=== PATIENT | male | born 1985 | race Hispanic/Latino ===

== ENCOUNTER 2020-05-30 09:25 | Emergency (ER) | payer SELFPAY ==
[2020-05-30] MEDS ORDERED: KETOROLAC 30 MG/ML INJ ONE (22:10)
[2020-05-30] MEDS ORDERED: METHYLPREDNISOLONE 125 MG INJ ONE (22:10)
[2020-05-30 22:14] LABS: Urine Blood TRACE (NEG); Urine Glucose 2+ (NEG); Urine Protein NEGATIVE (NEG); Urine Specific Gravity 1.025 (1.005-1.030)
--- NOTE | 2020-05-30 22:43 | EDPHYS ---
Physician Documentation [facility] Name: Fer Mendoza Age: 35 yrs Sex: Male : 1985 Arrival Date: 05/30/2020 Time: 21:28 Bed 8 Private MD: ED Physician Dakota Singh HPI: 05/31 03:13 This 35 yrs old Male presents to ER via Ambulatory with complaints of Kidney tw4 Pain. 03:13 The patient presents with pain and deformity. The symptoms are located in the low back, tw4 left low back. Onset: The symptoms/episode began/occurred last week. The pain radiates to the left leg. Associated signs and symptoms: The patient has no apparent associated signs or symptoms. The problem was sustained from unknown cause. Severity of symptoms: At their worst the symptoms were moderate, in the emergency department the symptoms are unchanged. The patient has not experienced similar symptoms in the past. Historical: - Allergies: 05/30 21:53 No Known Allergies; - Home Meds: 21:53 None [Active]; - PMHx: 21:53 Hypertension; Diabetes - IDDM; - PSHx: 21:53 None; - Immunization history:: Adult Immunizations up to date. - Social history:: Smoking status: Patient uses vape, Patient/guardian denies using. ROS: 05/31 03:13 Constitutional: Negative for fever, chills, and weight loss, Eyes: Negative for injury, tw4 pain, redness, and discharge, Cardiovascular: Negative for chest pain, palpitations, and edema, Respiratory: Negative for shortness of breath, cough, wheezing, and pleuritic chest pain, Abdomen/GI: Negative for abdominal pain, nausea, vomiting, diarrhea, and constipation, MS/Extremity: Negative for injury and deformity, Skin: Negative for injury, rash, and discoloration, Neuro: Negative for headache, weakness, numbness, tingling, and seizure. Back: Positive for pain at rest, pain with movement, radiated pain. Exam: 03:13 Constitutional: This is a well developed, well nourished patient who is awake, alert, tw4 and in no acute distress. Head/Face: Normocephalic, atraumatic. Chest/axilla: Normal chest wall appearance and motion. Nontender with no deformity. No lesions are appreciated. Cardiovascular: Regular rate and rhythm with a normal S1 and S2. No gallops, murmurs, or rubs. Normal PMI, no JVD. No pulse deficits. Respiratory: Lungs have equal breath sounds bilaterally, clear to auscultation and percussion. No rales, rhonchi or wheezes noted. No increased work of breathing, no retractions or nasal flaring. Abdomen/GI: Soft, non-tender, with normal bowel sounds. No distension or tympany. No guarding or rebound. No evidence of tenderness throughout. MS/ Extremity: Pulses equal, no cyanosis. Neurovascular intact. Full, normal range of motion. Neuro: Awake and alert, GCS 15, oriented to person, place, time, and situation. Cranial nerves II-XII grossly intact. Motor strength 5/5 in all extremities. Sensory grossly intact. Cerebellar exam normal. Normal gait. 03:13 Back: pain, that is mild, ROM is decreased, with all movement, Straight leg raises: left lower extremity illicits pain, at 30 degrees. Vital Signs: 05/30 21:50 BP 160 / 115; Pulse 95; Resp 18; Temp 98.2; Pulse Ox 99% ; Weight 136.08 kg; Height 6 wh ft. 1 in. (185.42 cm); Pain 7/10; 22:51 BP 137 / 92; Pulse 86; Resp 18; Pulse Ox 97% on R/A; wh 21:50 Body Mass Index 39.58 (136.08 kg, 185.42 cm) MDM: 21:42 Patient medically screened. tw4 05/31 03:13 Data reviewed: vital signs, nurses notes. Data interpreted: Pulse oximetry: tw4 Interpretation: normal. Counseling: I had a detailed discussion with the patient and/or guardian regarding: the historical points, exam findings, and any diagnostic results supporting the discharge/admit diagnosis. Medical screen evaluation completed. EMTALA emergency medical condition absent. Special discussion: I discussed with the patient/guardian in detail that at this point there is no indication for admission to the hospital. It is understood, however, that if the symptoms persist or worsen the patient needs to return immediately for re-evaluation. 05/30 21:56 Order name: Urine Dipstick--Ancillary (enter results) mw2 05/30 21:43 Order name: Urine Dipstick-Ancillary (obtain specimen); Complete Time: 21:50 tw4 Administered Medications: 05/30 22:06 Drug: TORadol 60 mg Route: IM; Site: left gluteus; 22:52 Follow up: Response: No adverse reaction; Pain is decreased 22:06 Drug: SOLU-Medrol 125 mg Route: IM; Site: right gluteus; 22:52 Follow up: Response: No adverse reaction Disposition: 05/30/20 22:43 Discharged to Home. Impression: Sciatica, left side. - Condition is Stable. - Discharge Instructions: Sciatica, Radicular Pain. - Prescriptions for Tramadol 50 mg Oral Tablet - take 1 tablet by ORAL route every 8 hours as needed; 12 tablet. Cyclobenzaprine 5 mg Oral Tablet - take 1 tablet by ORAL route 3 times per day As needed; 15 tablet. - Medication Reconciliation Form, Thank You Letter, Antibiotic Education, Prescription Opioid Use form. - Follow up: Private Physician; When: Upon discharge from the Emergency Department; Reason: Recheck today's complaints, Continuance of care, Re-evaluation by your physician. - Problem is new. - Symptoms have improved. Signatures: Dispatcher [employer] EDMS Shailesh Camargo Dakota Singh MD MD tw4 Corrections: (The following items were deleted from the chart) 22:52 22:43 05/30/2020 22:43 Discharged to Home. Impression: Sciatica, left side. Condition wh is Stable. Forms are Medication Reconciliation Form, Thank You Letter, Antibiotic Education, Prescription Opioid Use. Follow up: Private Physician; When: Upon discharge from the Emergency Department; Reason: Recheck today's complaints, Continuance of care, Re-evaluation by your physician. Problem is new. Symptoms have improved. tw4
--- NOTE | 2020-05-30 22:43 | ER ---
Nurse's Notes [facility] Name: Fer Mendoza Age: 35 yrs Sex: Male : 1985 Arrival Date: 05/30/2020 Time: 21:28 Bed 8 Private MD: Diagnosis: Sciatica, left side Presentation: 05/30 21:50 Chief complaint: Patient states: left low back pain that goes to left upper leg that wh started 3 weeks ago. Coronavirus screen: Client denies travel out of the [place] in the last 14 days. At this time, the client does not indicate any symptoms associated with coronavirus-19. Ebola Screen: Patient negative for fever greater than or equal to 101.5 degrees Fahrenheit, and additional compatible Ebola Virus Disease symptoms Patient denies exposure to infectious person. Initial Sepsis Screen: Does the patient meet any 2 criteria? HR > 90 bpm. Does the patient have a suspected source of infection? No. Patient's initial sepsis screen is negative. Risk Assessment: Do you want to hurt yourself or someone else? Patient reports no desire to harm self or others. Onset of symptoms was May 30, 2020. 21:50 Method Of Arrival: Ambulatory 21:50 Acuity: CHARLES 4 Historical: - Allergies: 21:53 No Known Allergies; - Home Meds: 21:53 None [Active]; - PMHx: 21:53 Hypertension; Diabetes - IDDM; - PSHx: 21:53 None; - Immunization history:: Adult Immunizations up to date. - Social history:: Smoking status: Patient uses vape, Patient/guardian denies using. Screenin:53 Abuse screen: Denies threats or abuse. Denies injuries from another. Nutritional screening: No deficits noted. Tuberculosis screening: No symptoms or risk factors identified. Fall Risk None identified. Assessment: 21:53 General: Appears in no apparent distress. Behavior is calm, cooperative, appropriate for age. Pain: Complains of pain in left low back Pain radiates to left leg Pain currently is 7 out of 10 on a pain scale. Quality of pain is described as shooting, Pain began 3 weeks ago. Neuro: Level of Consciousness is awake, alert, obeys commands, Oriented to person, place, time, situation, Appropriate for age. Cardiovascular: Capillary refill < 3 seconds. Respiratory: Airway is patent Respiratory effort is even, unlabored, Respiratory pattern is regular, symmetrical. GI: Abdomen is flat, non-distended. : No signs and/or symptoms were reported regarding the genitourinary system. EENT: No signs and/or symptoms were reported regarding the EENT system. Derm: Skin is intact, is healthy with good turgor, Skin is pink, warm \T\ dry. Musculoskeletal: Circulation, motion, and sensation intact. 21:55 Reassessment: Per MD hold on lab works for now. 22:50 Reassessment: Patient appears in no apparent distress at this time. Patient and/or wh family updated on plan of care and expected duration. Pain level reassessed. Patient is alert, oriented x 3, equal unlabored respirations, skin warm/dry/pink. Patient states feeling better. Patient states symptoms have improved. Vital Signs: 21:50 BP 160 / 115; Pulse 95; Resp 18; Temp 98.2; Pulse Ox 99% ; Weight 136.08 kg; Height 6 wh ft. 1 in. (185.42 cm); Pain 7/10; 22:51 BP 137 / 92; Pulse 86; Resp 18; Pulse Ox 97% on R/A; wh 21:50 Body Mass Index 39.58 (136.08 kg, 185.42 cm) ED Course: 21:28 Patient arrived in ED. cl3 21:41 Danny Bourne, RN is Primary Nurse. jb4 21:42 Dakota Singh MD is Attending Physician. tw4 21:44 Shailesh Camargo is Primary Nurse. 21:52 Triage completed. 21:54 Arm band placed on right wrist. 21:54 Patient has correct armband on for positive identification. Bed in low position. Call light in reach. Side rails up X 1. Pulse ox on. NIBP on. 22:51 No provider procedures requiring assistance completed. Patient did not have IV access during this emergency room visit. Administered Medications: 22:06 Drug: TORadol 60 mg Route: IM; Site: left gluteus; 22:52 Follow up: Response: No adverse reaction; Pain is decreased 22:06 Drug: SOLU-Medrol 125 mg Route: IM; Site: right gluteus; 22:52 Follow up: Response: No adverse reaction Outcome: 22:43 Discharge ordered by . [email or web address] 22:51 Discharged to home ambulatory. 22:51 Condition: stable 22:51 Discharge instructions given to patient, Instructed on discharge instructions, follow up and referral plans. no drinking with medication, no driving heavy equipment, medication usage, POC Demonstrated understanding of instructions, follow-up care, medications, POC Prescriptions given X 2. 22:52 Patient left the ED. Signatures: Danny Bourne RN RN jb4 Shailesh Camargo Dakota Singh MD MD tw4 Tino Saunders cl3
== END 2020-05-30 22:52 | disposition home or self-care (01) ==
LOC: ER 21:25
DX: M54.32 Sciatica, left side (principal); I10 Essential (primary) hypertension; Z72.0 Tobacco use
CPT/HCPCS: 81003; 96372; 99283; J2930

== ENCOUNTER 2021-05-14 13:49 | Observation (INO) | payer OTHER, SELFPAY ==
[2021-05-14 14:23] LABS: Absolute Lymphocytes (CBC) 2.1 K/uL (0.7-4.9); Basophils % 0.7 % (0-1.3); Hematocrit 49.5 % (39.6-49.0); Lymphocytes % 28.9 % (15.3-44.8); MPV 10.9 fL (7.6-11.3); RBC Red Blood Cell Count 5.87 M/uL (4.33-5.43)
--- NOTE | 2021-05-14 14:36 | RAD REPORT ---
EXAM DESCRIPTION: Camila Single View05/14/2021 2:17 pm CLINICAL HISTORY: Chest pain COMPARISON: none FINDINGS: The lungs appear clear of acute infiltrate. The heart is normal size IMPRESSION: No acute abnormalities displayed
[2021-05-14 14:40] LABS: Protime INR 0.97
[2021-05-14 15:32] LABS: ALT/SGPT 49 U/L (12-78); AST/SGOT 31 U/L (15-37); Alkaline Phosphatase 161 U/L (45-117); BUN Blood Urea Nitrogen 15 mg/dL (7-18); Bicarbonate 22 mmol/L (21-32); Bilirubin Direct < 0.1 mg/dL (0-0.2); Bilirubin Total 0.4 mg/dL (0.2-1.0); Glucose Level 359 mg/dL (74-106); Magnesium 2.2 mg/dL (1.8-2.4); NT PRO-BNP < 5 pg/mL (<125); Potassium 4.5 mmol/L (3.5-5.1); Protein, Total 7.3 g/dL (6.4-8.2); Sodium Level 137 mmol/L (136-145); Troponin (Emerg Dept Use Only) < 0.02 ng/mL (0.0-0.045)
[2021-05-14] MEDS ORDERED: NA CHLORIDE 0.9% 1,000 ML ONE (16:06)
--- NOTE | 2021-05-14 16:24 | RAD REPORT ---
EXAM DESCRIPTION: CT - Chest For Pe Angio - 05/14/2021 4:08 pm CLINICAL HISTORY: Chest pain COMPARISON: None. TECHNIQUE: Dynamically enhanced axial 3 mm thick images of the chest were obtained during administra tion of <100> mL Isovue 370 IV contrast. Coronal and oblique reconstruction images were generated and reviewed. Exam utilizes a protocol for optimal evaluation of pulmonary arterial tree. Maximum intensity projections 3D imaging was utilized All CT scans are performed using dose optimization technique as appropriate and may include automated exposure control or mA/KV adjustment according to patient size. FINDINGS: A pulmonary embolus is not seen. A thoracic aortic aneurysm is not noted. A bovine aorta A pleural effusion is not seen. A pericardial effusion is not seen. A lung consolidation is not present. IMPRESSION: Negative for a pulmonary embolism.
--- NOTE | 2021-05-14 16:39 | ER ---
Nurse's Notes [facility] Name: Fer Mendoza Age: 36 yrs Sex: Male : 1985 Arrival Date: 05/14/2021 Time: 13:51 Bed 28 Private MD: Diagnosis: Chest pain, unspecified Presentation: 05/14 14:06 Chief complaint: Patient states: Left sided chest pressure since 0800, constant. jl7 Coronavirus screen: At this time, the client does not indicate any symptoms associated with coronavirus-19. Ebola Screen: No symptoms or risks identified at this time. Initial Sepsis Screen: Does the patient meet any 2 criteria? No. Patient's initial sepsis screen is negative. Does the patient have a suspected source of infection? No. Patient's initial sepsis screen is negative. Risk Assessment: Do you want to hurt yourself or someone else? Patient reports no desire to harm self or others. Onset of symptoms was May 14, 2021 at 08:00. Care prior to arrival: None. 14:06 Method Of Arrival: Ambulatory [facility] 14:06 Acuity: CHARLES 2 jl7 Triage Assessment: 14:08 General: Appears in no apparent distress. uncomfortable, Behavior is calm, cooperative, jl7 appropriate for age. Pain: Complains of pain in chest Pain currently is 6 out of 10 on a pain scale. at worst was 8 out of 10 on a pain scale. Cardiovascular: Patient's skin is warm and dry. Historical: - Allergies: 14:08 No Known Allergies; jl7 - Home Meds: 14:08 supposed to take DM and htn medications but does not [Active]; jl7 - PMHx: 14:08 Diabetes - IDDM; Hypertension; jl7 - PSHx: 14:08 None; jl7 - Immunization history:: Client reports receiving the 2nd dose of the Covid vaccine, [employer]. - Social history:: Smoking status: Reported history of juuling and/or vaping. Screenin:13 Abuse screen: Denies threats or abuse. Denies injuries from another. Nutritional lp1 screening: No deficits noted. Tuberculosis screening: No symptoms or risk factors identified. Fall Risk None identified. Assessment: 14:09 General: Appears in no apparent distress. Behavior is appropriate for age. Pain: lp1 Complains of pain in chest Pain radiates to left arm Pain currently is 5 out of 10 on a pain scale. Pain began gradually. Neuro: Level of Consciousness is awake, alert, obeys commands, Oriented to person, place, time, situation. Cardiovascular: Patient's skin is warm and dry. Rhythm is sinus rhythm. Respiratory: Respiratory effort is even, unlabored, Breath sounds are clear bilaterally. GI: No signs and/or symptoms were reported involving the gastrointestinal system. : No signs and/or symptoms were reported regarding the genitourinary system. EENT: No signs and/or symptoms were reported regarding the EENT system. Derm: Skin is pink, warm \T\ dry. Musculoskeletal: No deficits noted. 15:48 Reassessment: Patient appears in no apparent distress at this time. Patient is alert, lp1 oriented x 3, equal unlabored respirations, skin warm/dry/pink. Reassessment: Denies need for medication for chest pain discomfort. Pain: Complains of pain in chest Pain radiates to left arm Pain currently is 5 out of 10 on a pain scale. Is intermittent. 19:00 Reassessment: Patient appears in no apparent distress at this time. Patient is alert, lp1 oriented x 3, equal unlabored respirations, skin warm/dry/pink. aware of pending admission. Vital Signs: 14:06 BP 147 / 101; Pulse 108; Resp 17; Temp 98.2; Pulse Ox 97% on R/A; Weight 136.08 kg; jl7 Height 6 ft. 1 in. (185.42 cm); Pain 6/10; 14:59 BP 130 / 91; Pulse 103; Resp 22; Pulse Ox 97% on R/A; lp1 15:48 BP 131 / 92; Pulse 116; Resp 16; Pulse Ox 98% on R/A; Pain 5/10; lp1 17:00 BP 136 / 89; Pulse 102; Resp 23; Pulse Ox 100% on R/A; ld1 18:15 BP 129 / 92; Pulse 106; Resp 21; Pulse Ox 100% on R/A; ld1 14:06 Body Mass Index 39.58 (136.08 kg, 185.42 cm) jl7 ED Course: 13:51 Patient arrived in ED. am2 13:54 Nikolay Noriega PA is PHCP. [facility] 13:55 Kehinde Ruiz MD is Attending Physician. [facility] 14:00 Inserted saline lock: 20 gauge in right antecubital area, using aseptic technique. lp1 Blood collected. 14:08 Triage completed. jl7 14:08 Nina Mendenhall, RN is Primary Nurse. lp1 14:08 Arm band placed on right wrist. EKG completed in triage. Results shown to MD. jl7 14:13 Patient has correct armband on for positive identification. Bed in low position. lp1 library monitor on. Pulse ox on. NIBP on. 14:13 Patient maintains SpO2 saturation greater than 95% on room air. lp1 14:17 XRAY Chest (1 view) In Process Unspecified. EDMS 16:08 CT Chest For PE Angio In Process Unspecified. EDMS 16:38 Deon Casey MD is Hospitalizing Provider. [facility] 17:00 Report given to SCOTTY Haro. lp1 19:35 No provider procedures requiring assistance completed. lp1 19:35 Patient admitted, IV remains in place. lp1 Administered Medications: 15:47 Drug: NS 0.9% 1000 ml Route: IV; Rate: 1 bolus; Site: right antecubital; lp1 17:00 Follow up: IV Status: Completed infusion; IV Intake: 1000ml lp1 Intake: 17:00 IV: 1000ml; Total: 1000ml. 1 Outcome: 16:38 Decision to Hospitalize by Provider. [facility] 19:35 Condition: stable lp1 19:35 Instructed on the need for admit. 19:40 Admitted to Tele room 421, with chart, Report called to SCOTTY Yuen lp1 19:59 Patient left the ED. lp1 Signatures: Dispatcher [employer] EDNM Nikolay Noriega PA PA Nina Luke, RN RN lp1 Divya Zambrano RN RN jl7 Kezia Constantino am2 Estrellita Ferrer, RN RN ld1 Corrections: (The following items were deleted from the chart) 19:37 19:00 Reassessment: Patient appears in no apparent distress at this time. Patient is lp1 alert, oriented x 3, equal unlabored respirations, skin warm/dry/pink. lp1
--- NOTE | 2021-05-14 16:39 | EDPHYS ---
Physician Documentation [facility] Name: Fer Mendoza Age: 36 yrs Sex: Male : 1985 Arrival Date: 05/14/2021 Time: 13:51 Bed 28 Private MD: ED Physician Kehinde Ruiz HPI: 05/14 14:18 This 36 yrs old Male presents to ER via Ambulatory with complaints of Chest jmm Pain, High Blood Pressure. 14:18 The patient or guardian reports chest pain that is located primarily in the substernal jmm area. The pain does not radiate. Associated signs and symptoms: Pertinent negatives: abdominal pain, lightheadedness, nausea, near syncope, shortness of breath, vomiting. The chest pain is described as aching. Duration: The patient or guardian reports a single episode, that is still ongoing. Modifying factors: The symptoms are alleviated by nothing. the symptoms are aggravated by nothing. The patient has not experienced similar symptoms in the past. Historical: - Allergies: 14:08 No Known Allergies; jl7 - Home Meds: 14:08 supposed to take DM and htn medications but does not [Active]; jl7 - PMHx: 14:08 Diabetes - IDDM; Hypertension; jl7 - PSHx: 14:08 None; jl7 - Immunization history:: Client reports receiving the 2nd dose of the Covid vaccine, myMedScore. - Social history:: Smoking status: Reported history of juuling and/or vaping. ROS: 14:18 Constitutional: Negative for fever, chills, and weight loss, Respiratory: Negative for jmm shortness of breath, cough, wheezing, and pleuritic chest pain. 14:18 Cardiovascular: Positive for chest pain. 14:18 All other systems are negative. Exam: 14:18 Constitutional: This is a well developed, well nourished patient who is awake, alert, jmm and in no acute distress. Head/Face: atraumatic. Eyes: EOMI, no conjunctival erythema appreciated ENT: Moist Mucus Membranes Neck: Trachea midline, Supple Chest/axilla: Normal chest wall appearance and motion. Cardiovascular: Regular rate and rhythm. No edema appreciated Respiratory: Normal respirations, no respiratory distress appreciated Abdomen/GI: Non distended, soft Back: Normal ROM Skin: General appearance color normal MS/ Extremity: Moves all extremities, no obvious deformities appreciated, no edema noted to the lower extremities Neuro: Awake and alert, normal gait Psych: Behavior is normal, Mood is normal, Patient is cooperative and pleasant Vital Signs: 14:06 BP 147 / 101; Pulse 108; Resp 17; Temp 98.2; Pulse Ox 97% on R/A; Weight 136.08 kg; jl7 Height 6 ft. 1 in. (185.42 cm); Pain 6/10; 14:59 BP 130 / 91; Pulse 103; Resp 22; Pulse Ox 97% on R/A; lp1 15:48 BP 131 / 92; Pulse 116; Resp 16; Pulse Ox 98% on R/A; Pain 5/10; lp1 17:00 BP 136 / 89; Pulse 102; Resp 23; Pulse Ox 100% on R/A; ld1 18:15 BP 129 / 92; Pulse 106; Resp 21; Pulse Ox 100% on R/A; ld1 14:06 Body Mass Index 39.58 (136.08 kg, 185.42 cm) 7 MDM: 14:02 Patient medically screened. [facility] 16:38 Data reviewed: vital signs, nurses notes. Counseling: I had a detailed discussion with alisson the patient and/or guardian regarding: the historical points, exam findings, and any diagnostic results supporting the discharge/admit diagnosis, lab results, radiology results, the need for further work-up and treatment in the hospital. 05/14 13:57 Order name: Basic Metabolic Panel; Complete Time: 15:40 [facility] 05/14 13:57 Order name: CBC with Diff; Complete Time: 14:49 [facility] 05/14 13:57 Order name: LFT's; Complete Time: 15:40 [facility] 05/14 13:57 Order name: Magnesium; Complete Time: 15:40 [facility] 05/14 13:57 Order name: NT PRO-BNP; Complete Time: 15:40 [facility] 05/14 13:57 Order name: PT-INR; Complete Time: 14:49 [facility] 05/14 13:57 Order name: Troponin (emerg Dept Use Only); Complete Time: 15:40 [facility] 05/14 14:02 Order name: D-Dimer; Complete Time: 15:21 [facility] 05/14 14:14 Order name: Glucose, Ancillary Testing; Complete Time: 14:17 [facility] 05/14 16:48 Order name: Basic Metabolic Panel EDKS 05/14 16:48 Order name: CKMB Creatine Kinase MB EDMS 05/14 16:48 Order name: CKMB Creatine Kinase MB EDKS 05/14 16:48 Order name: PTT, Activated Partial Thromb EDMS 05/14 16:48 Order name: CKMB Creatine Kinase MB EDKS 05/14 13:57 Order name: XRAY Chest (1 view); Complete Time: 14:49 [facility] 05/14 15:41 Order name: CT Chest For PE Angio; Complete Time: 16:27 [facility] 05/14 16:48 Order name: CKMB Creatine Kinase MB EDKS 05/14 16:48 Order name: Creatine Phosphokinase EDKS 05/14 16:48 Order name: Creatine Phosphokinase EDKS 05/14 16:48 Order name: Creatine Phosphokinase EDKS 05/14 16:48 Order name: Creatine Phosphokinase EDKS 05/14 16:48 Order name: Lipid Profile EDKS 05/14 16:48 Order name: Lipid Profile EDKS 05/14 16:48 Order name: Troponin I EDKS 05/14 16:48 Order name: CBC with Automated Diff EDKS 05/14 16:49 Order name: Magnesium EDKS 05/14 16:50 Order name: Hemoglobin A1c EDKS 05/14 17:14 Order name: SARS-COV-2 RT PCR EDKS 05/14 17:37 Order name: Glucose, Ancillary Testing EDKS 05/14 13:57 Order name: EKG; Complete Time: 13:58 [facility] 05/14 13:57 Order name: Cardiac monitoring; Complete Time: 14:10 [facility] 05/14 13:57 Order name: EKG - Nurse/Tech; Complete Time: 14:10 [facility] 05/14 13:57 Order name: IV Saline Lock; Complete Time: 14:10 [facility] 05/14 13:57 Order name: Labs collected and sent; Complete Time: 14:10 [facility] 05/14 13:57 Order name: O2 Per Protocol; Complete Time: 14:10 [facility] 05/14 13:57 Order name: O2 Sat Monitoring; Complete Time: 14:10 [facility] 05/14 16:48 Order name: CONS Physician Consult EDKS 05/14 16:48 Order name: Heart Healthy EDKS 05/14 16:48 Order name: Echo with Doppler EDKS 05/14 16:48 Order name: EKG Electrocardiogram EDMS 05/14 16:48 Order name: EKG Electrocardiogram EDMS 05/14 16:48 Order name: EKG Electrocardiogram EDKS Administered Medications: 15:47 Drug: NS 0.9% 1000 ml Route: IV; Rate: 1 bolus; Site: right antecubital; lp1 17:00 Follow up: IV Status: Completed infusion; IV Intake: 1000ml lp1 Disposition: 05/15 05:39 Co-signature as Attending Physician, Kehinde Ruiz MD I agree with the assessment and kdr plan of care. Disposition Summary: 05/14/21 16:38 Hospitalization Ordered Hospitalization Status: Observation [facility] Provider: Deon Casey Location: Telemetry/MedSurg (observation) jmm Condition: Stable jmm Problem: new jmm Symptoms: are unchanged jmm Bed/Room Type: Standard [facility] Room Assignment: 421(05/14/21 18:49) em1 Diagnosis - Chest pain, unspecified m Forms: - Medication Reconciliation Form jmm - SBAR form jm Signatures: Dispatcher [employer] EDKS Kehinde Ruiz MD MD kdr Nikolay Noriega PA PA He Perera em1 Nina Mendenhall RN RN lp1 Divya Zambrano RN RN jl7 Corrections: (The following items were deleted from the chart) 05/14 17:14 17:00 CORONAVIRUS+BRZ ordered. [facility] EDKS 18:49 16:38 jmm em1
[2021-05-14] MEDS ORDERED: NITROGLYCERIN 0.4 MG/TAB SL PRN (16:40)
[2021-05-14] MEDS ORDERED: ALPRAZOLAM 0.25 MG TABLET PO PRN (16:40)
[2021-05-14] MEDS ORDERED: ACETAMINOPHEN 500 MG TAB PO PRN (16:40)
--- NOTE | 2021-05-14 17:15 | P.HP ---
Certification for Inpatient With expected LOS: >2 Midnights Patient will require the following post-hospital care: None Practitioner: I am a practitioner with admitting privileges, knowledge of patient current condition, hospital course, and medical plan of care. Services: Services provided to patient in accordance with Admission requirements found in Title 42 Section 412.3 of the Code of Federal Regulations Patient History Date of Service: 05/14/21 Primary Care Provider: None Reason for admission: Chest pain History of Present Illness: 36 year old - [place] male with past medical history of hypertension , diabetes II , vaping , obesity who came to the ED with complaints of chest pain and shortness of breath that started 9:30 am this morning. The pain is substernal and he describes the quality as sharp / pressure like with radiation to left arm. It has been a constant pain since it started this morning. At first , he felt sharp pain that was 8/10 but eventually it turned into pressure like is currently 6/10 in the ED. He denies fever , nausea , vomiting , diarrhea , diaphoresis , weakness , dizziness , syncope. no aggravating or alleviating factors. His EKG , CTA , CXR are all unremarkable. Blood sugar 359 , D-dimer 526.Patient is not compliant with his medication and does not take insulin. His most recent fasting blood sugar at home is 525. He is from [place] and comes here for work. He does not have a primary care doctor. Fully vaccinated against COVID. - Past Medical/Surgical History Diabetic: Yes -: HTN -: DM II Past Surgical History: Patient denies surgical history - Social History Smoking Status: Current every day smoker (Vape for 10 years) Smoking therapy provided: Yes Patient receptive to therapy: Yes Review of Systems General: Unremarkable Eyes: Unremarkable ENT: Unremarkable Respiratory: Shortness of Breath Cardiovascular: Chest Pain Gastrointestinal: Unremarkable Musculoskeletal: Unremarkable Integumentary: Unremarkable Neurological: Unremarkable Physical Examination - Physical Exam General: Alert, In no apparent distress, Oriented x3, Cooperative HEENT: Atraumatic, Normocephalic, PERRLA, Mucous membr. moist/pink, Sclerae nonicteric Neck: Supple, 2+ carotid pulse no bruit, Without JVD or thyroid abnormality Respiratory: Clear to auscultation bilaterally, Normal air movement Cardiovascular: No edema, Normal pulses, Regular rate/rhythm Gastrointestinal: Normal bowel sounds, Soft and benign, Non-distended, No ascites, No tenderness, No masses, No rebound, No guarding Musculoskeletal: No clubbing, No swelling, No contractures, No tenderness, No warmth Integumentary: No rashes, No breakdown, No significant lesion, No tenderness/swelling, No erythema, No warmth, No cyanosis Neurological: Normal gait, Normal speech - Studies Laboratory Data (last 24 hrs) 05/14/21 14:00: PT 11.1, INR 0.97 05/14/21 14:00: WBC 7.10, Hgb 16.7, Hct 49.5 H, Plt Count 262 05/14/21 14:00: Sodium 137, Potassium 4.5, BUN 15, Creatinine 0.95, Glucose 359 H, Magnesium 2.2, Total Bilirubin 0.4, AST 31, ALT 49, Alkaline Phosphatase 161 H Assessment and Plan - Plan Assessment: 36 year old male with past medical history of hypertension , diabetes , vaping x 10 years presents for chest pain. Plan: Chest pain: EKG normal. serial EKGs CXR normal D- dimer elevated. CTA negative lipid panel pending troponin <0.02. Continue to monitor Q6H x 3 Echo pending Lovenox 40 mg BID ASA 325 mg daily Core measure: ASA , BB , statin , LORIE-I Continue telemonitoring Heart healthy diet Educated patient on diet, exercise, smoking cessation, and lifestyle modification. Cardiology consulted. Awaiting recommendations. Hypertension: Continue to monitor Lisinopril 20 mg daily - Advance Directives Does patient have a Living Will: No Does patient have a Durable POA for Healthcare: No
[2021-05-14] MEDS: INSULIN -REGULAR HUMAN 50 UNIT/0.5 ML ML SQ SCH (18:00)
[2021-05-14] MEDS: METOPROLOL TAR 25 MG TAB PO SCH (20:41)
[2021-05-14] MEDS ORDERED: ATORVASTATIN 40 MG TAB PO SCH (21:00)
[2021-05-14 21:11] VITALS: BMI 5667.8
[2021-05-15 05:21] LABS: Absolute Lymphocytes (CBC) 2.3 K/uL (0.7-4.9); Basophils % 0.6 % (0-1.3); Hematocrit 43.7 % (39.6-49.0); Lymphocytes % 39.8 % (15.3-44.8); MPV 10.5 fL (7.6-11.3); RBC Red Blood Cell Count 5.13 M/uL (4.33-5.43)
[2021-05-15 05:59] LABS: HDL Cholesterol 26 mg/dL (40-60)
[2021-05-15] MEDS: INSULIN -REGULAR HUMAN 50 UNIT/0.5 ML ML SQ SCH ×2 (06:00)
[2021-05-15 06:10] LABS: LDL, Direct 61 mg/dL (100-129)
[2021-05-15 06:22] LABS: ALT/SGPT 56 U/L (12-78); Albumin 3.6 g/dL (3.4-5.0); Alkaline Phosphatase 140 U/L (45-117); BUN Blood Urea Nitrogen 17 mg/dL (7-18); Bicarbonate 24 mmol/L (21-32); Bilirubin Total 0.3 mg/dL (0.2-1.0); Glucose Level 279 mg/dL (74-106); Sodium Level 137 mmol/L (136-145); Troponin I < 0.02 ng/mL (0.0-0.045)
[2021-05-15 06:23] LABS: AST/SGOT 33 U/L (15-37); Magnesium 2.1 mg/dL (1.8-2.4); Potassium 4.1 mmol/L (3.5-5.1)
[2021-05-15] MEDS: METOPROLOL TAR 25 MG TAB PO SCH (08:34)
--- NOTE | 2021-05-15 08:59 | EKG ---
Test Date: 2021-05-14 Test Time: 14:00:25 Project Controller: CRAIG MEASUREMENT RESULTS: Intervals: Rate: 104 [place]: 152 QRSD: 84 QT: 346 QTc: 454 [place]: P: 40 [place]: 152 QRS: 91 T: 28 INTERPRETIVE STATEMENTS: Sinus tachycardia Rightward axis Borderline ECG No previous ECG available for comparison Electronically Signed On 05-15-21 08:57:23 CDT by Clyde Ramsey
[2021-05-15] MEDS ORDERED: lisinopriL 20 MG TAB PO SCH (09:00)
[2021-05-15] MEDS ORDERED: ASPIRIN EC 81 MG TAB PO SCH (09:00)
[2021-05-15 10:01] VITALS: O2SAT 100
[2021-05-15 12:03] VITALS: BP 143/84; TEMP 97.2
--- NOTE | 2021-05-15 13:37 | P.DS ---
Admission Date: 05/14/21 Discharge Date: 05/15/21 Primary Care Provider: None Disposition: ROUTINE DISCHARGE Discharge Condition: GOOD Reason for Admission: Chest pain Consultations: Cardiology - Dr. Ramsey Procedures: CXR (05/14): FINDINGS: The lungs appear clear of acute infiltrate. The heart is normal size IMPRESSION: No acute abnormalities displayed CTA Chest (05/14): FINDINGS: A pulmonary embolus is not seen. A thoracic aortic aneurysm is not noted. A bovine aorta A pleural effusion is not seen. A pericardial effusion is not seen. A lung consolidation is not present. IMPRESSION: Negative for a pulmonary embolism. Problem List Chest Pain uncontrolled DM2, insulin dependent (noncompliant) Hypertension Hypertrygliceridemia Brief History of Present Illness: 36 year old - [place] male with past medical history of hypertension , diabetes II , vaping , obesity who came to the ED with complaints of chest pain and shortness of breath that started 9:30 am this morning. The pain is substernal and he describes the quality as sharp / pressure like with radiation to left arm. It has been a constant pain since it started this morning. At first , he felt sharp pain that was 8/10 but eventually it turned into pressure like is currently 6/10 in the ED. He denies fever , nausea , vomiting , diarrhea , diaphoresis , weakness , dizziness , syncope. no aggravating or alleviating factors. His EKG , CTA , CXR are all unremarkable. Blood sugar 359 , D-dimer 526.Patient is not compliant with his medication and does not take insulin. His most recent fasting blood sugar at home is 525. He is from [place] and comes here for work. He does not have a primary care doctor. Fully vaccinated against COVID. Hospital Course: Troponin and EKG remained negative/no signs of acute ischemia. Cardiology was consulted, and felt patient was stable for discharge and continued work-up as an outpatient. Work-up during hospitalization revealed significant hypertriglyceridemia T. LDL: 61, HDL: 26. Hemoglobin A1c: 11.0 He was also found to be mildly hypertensive. Patient was treated and discharged with aspirin, metoprolol, lisinopril, statin, and fenofibrate. He reports stopping insulin ~2-3 months ago. Discharged with prescription for Lantus. He will follow up with PCP in the next few days for further adjustments Discussed strict low fat/carb diet. Follow up with Dr. Ramsey (Cardiology) for outpatient stress testing Vital Signs/Physical Exam: Temp Pulse Resp BP Pulse Ox 97.2 F 61 16 143/84 H 98 05/15/21 12:00 05/15/21 12:00 05/15/21 12:00 05/15/21 12:00 05/15/21 12:00 General: Alert, In no apparent distress, Oriented x3 HEENT: Sclerae nonicteric Neck: Supple, No LAD Respiratory: Clear to auscultation bilaterally, Normal air movement Cardiovascular: No edema, Regular rate/rhythm, Normal S1 S2 Gastrointestinal: Soft and benign, Non-distended, No tenderness Musculoskeletal: No erythema, No tenderness Integumentary: No rashes, No significant lesion Neurological: Normal speech, Normal strength at 5/5 x4 extr, Normal affect Laboratory Data at Discharge: WBC Cancelled 05/15/21 18:15 Hgb Cancelled 05/15/21 18:15 Hct Cancelled 05/15/21 18:15 Plt Count Cancelled 05/15/21 18:15 PT 11.1 SECONDS (9.5-12.5) 05/14/21 14:00 INR 0.97 05/14/21 14:00 APTT Cancelled 05/14/21 Unknown Sodium Cancelled 05/15/21 18:15 Potassium Cancelled 05/15/21 18:15 BUN Cancelled 05/15/21 18:15 Creatinine Cancelled 05/15/21 18:15 Glucose Cancelled 05/15/21 18:15 Magnesium Cancelled 05/15/21 18:15 Total Bilirubin Cancelled 05/15/21 18:15 AST Cancelled 05/15/21 18:15 ALT Cancelled 05/15/21 18:15 Alkaline Phosphatase Cancelled 05/15/21 18:15 Troponin I < 0.02 ng/mL (0.0-0.045) 05/15/21 04:24 Triglycerides 2035 mg/dL (<150) H 05/15/21 04:24 Triglycerides Cancelled 05/15/21 04:24 Cholesterol 253 mg/dL (<200) H 05/15/21 04:24 Cholesterol Cancelled 05/15/21 04:24 LDL Cholesterol Direct 61 mg/dL (100-129) L 05/15/21 04:24 HDL Cholesterol 26 mg/dL (40-60) L 05/15/21 04:24 HDL Cholesterol Cancelled 05/15/21 04:24 Cholesterol/HDL Ratio 9.73 05/15/21 04:24 Cholesterol/HDL Ratio Cancelled 05/15/21 04:24 Lipase 153 U/L (73-393) 05/15/21 04:24 Home Medications: Aspirin [Aspirin EC 81 MG] 81 mg PO DAILY 30 Days #30 tablet. 05/15/21 Atorvastatin Calcium [Lipitor*] 20 mg PO BEDTIME 30 Days #30 tab 05/15/21 Fenofibrate Nanocrystallized [Tricor] 48 mg PO DAILY 30 Days #30 tablet 05/15/21 Insulin Glargine,Hum.rec.anlog [Lantus Solostar] 20 unit SQ DAILY 30 Days #10 ml 05/15/21 Lisinopril [Zestril] 5 mg PO DAILY 30 Days #30 tablet 05/15/21 Metoprolol Tartrate [Lopressor*] 0.5 tab PO BID 30 Days #30 tab 05/15/21 New Medications: Aspirin [Aspirin EC 81 MG] 81 mg PO DAILY 30 Days #30 tablet.dr Freya RasconHum.rec.anlog [Lantus Solostar] 20 unit SQ DAILY 30 Days #10 ml Atorvastatin Calcium [Lipitor*] 20 mg PO BEDTIME 30 Days #30 tab Metoprolol Tartrate [Lopressor*] 0.5 tab PO BID 30 Days #30 tab Fenofibrate Nanocrystallized [Tricor] 48 mg PO DAILY 30 Days #30 tablet Lisinopril [Zestril] 5 mg PO DAILY 30 Days #30 tablet Physician Discharge Instructions: Your chest pain was evaluated by EKG and cardiac enzymes (troponin) which were negative / not suggestive of heart attack. You do have risk factors for cardiac disease (uncontrolled diabetes and high blood pressure). Cardiology was consulted, and you were deemed stable for discharge home. Follow up with Dr. Ramsey in his office in the next week or two for cardiac stress test. Please call his office to follow up. Follow up with PCP in 3-5 days. Your A1c was 11, you are discharged home with long-acting insulin (Lantus), 20 units once a day. Check your glucose levels and write them down. Take them to your PCP for further adjustments. Your Triglycerides were >2000, which is severely high. You are prescribed atorvastatin and fenofibrate to help reduce these levels and reduce risk to your heart. Please follow a very strict low fat diet to assist with this as well. Ideally, weight loss will help as well. You were hypertensive and prescribed lisinopril and metoprolol - both will help with your blood pressure and are protective for your kidneys and heart since you have diabetes and high blood pressure. 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
[2021-05-15] MEDS ORDERED: ENOXAPARIN 40 MG/0.4 ML SQ SCH (17:30)
--- NOTE | 2021-05-16 08:21 | ECHO ---
HEIGHT: 6 ft 1 in WEIGHT: 300 lb 0 oz DATE OF STUDY: 05/15/[address]: LIANE Ayers 2-DIMENSIONAL: YES M.MODE: YES DOPPLER: YES COLOR FLOW: YES TDS: YES PORTABLE: DEFINITY: BUBBLE STUDY: DIAGNOSIS: CHEST PAIN CARDIAC HISTORY: CATHERIZATION: NO SURGERY: NO PROSTHETIC VALVE: NO PACEMAKER: NO MEASUREMENTS (cm) DIASTOLIC (NORMALS) SYSTOLIC (NORMALS) IVSd 1.3 (0.6-1.2) LA Diam 2.8 (1.9-4.0) LVEF 66% LVIDd 5.5 (3.5-5.7) LVIDs 3.5 (2.0-3.5) %FS 37% LVPWd 1.4 (0.6-1.2) Ao Diam 3.1 (2.0-3.7) 2 DIMENSIONAL ASSESSMENT: RIGHT ATRIUM: NORMAL LEFT ATRIUM: NORMAL RIGHT VENTRICLE: NORMAL LEFT VENTRICLE: NORMAL TRICUSPID VALVE: NORMAL MITRAL VALVE: NORMAL PULMONIC VALVE: NORMAL AORTIC VALVE: NORMAL PERICARDIAL EFFUSION: NONE AORTIC ROOT: NORMAL LEFT VENTRICULAR WALL MOTION: NORMAL DOPPLER/COLOR FLOW: NORMAL COMMENTS: NORMAL LEFT VENTRICULAR EJECTION FRACTION 55-60%. NORMAL WALL MOTION. TECHNOLOGIST: UZIEL SHELBY
--- NOTE | 2021-05-17 15:39 | CON ---
Date of Consultation: 05/15/2021 Reason For Consultation: Chest pain. History Of Present Illness: Mr. Mendoza is a 36-year-old obese male with history of diabetes, hypert ension. Came in with atypical chest pain, left-sided, sharp, stabbing, nonradiating and nonexertiona l. No nausea, vomiting, diaphoresis, PND, orthopnea, pedal edema, palpitations, or syncope. [place] has already been ruled out. EKG is normal. Troponin is normal. Chest x-ray is normal. He had an eleva yury D-dimer with a negative CTA. His blood glucose was 287. His triglyceride was 5. Past Medical History: Diabetes and hypertension. Medications: He takes no medications at home, although he was supposed to. Allergies: NONE. Family History: Positive for heart disease. Review of Systems: Negative. Social History: Negative. Physical Examination: General: Very pleasant, no acute distress. Vital Signs: Stable. He weighed 300 pounds. HEENT: Negative. Neck: Supple without bruit, lymphadenopathy, JVD, or thyromegaly. Chest: Clear to auscultation and percussion. Cardiac: Revealed a regular rhythm and rate. No murmurs, gallops, or rubs. Abdomen: Benign. Extremities: Revealed no clubbing, cyanosis, or edema. Diagnostic Data: As stated earlier. Impression And Plan: 1.Diabetes. 2.Hypertension. 3.Mixed dyslipidemia with very elevated triglyceride. He needs to be on diabetes medicine, blood pr essure medicine, and aspirin. He should be on a low-dose beta-claudia. He should be on statin and T ricor. He can go home. He needs an outpatient MPI as soon as possible. I will make an arrangement for that. DEBBY/ESTELA Voice ID: [id number] Report ID: [id number]
== END 2021-05-15 12:00 | disposition home or self-care (01) ==
LOC: ER 13:49 → SUPCPDRO 13:49 → ERHOLD 16:40 → INTOOBSV 16:40 → 4TH 19:34
PROVIDERS: ADMIT Hospitalist; ATTEND Hospitalist
DX: R07.9 Chest pain, unspecified (principal); E11.65 Type 2 diabetes mellitus with hyperglycemia; Z79.4 Long term (current) use of insulin; Z91.14 Patient's other noncompliance with medication regimen; I10 Essential (primary) hypertension; E78.2 Mixed hyperlipidemia; E78.1 Pure hyperglyceridemia; E66.9 Obesity, unspecified; Z68.39 Body mass index [BMI] 39.0-39.9, adult; F17.290 Nicotine dependence, other tobacco product, uncomplicated; Z71.6 Tobacco abuse counseling; Z20.822 Contact with and (suspected) exposure to COVID-19; Z82.49 Family history of ischemic heart disease and other diseases of the circulatory system
CPT/HCPCS: 36415; 71045; 71275; 80048; 80053; 80061; 80076; 82947; 83036; 83690; 83735; 83880; 84484; 85025; 85379; 85610; 93005; 93306; 94760; 96360; 99285; G0378; J1650; J7030; Q9967; U0003

== ENCOUNTER 2021-09-02 10:50 | Emergency (ER) | payer OTHER, SELFPAY ==
--- OUTSIDE RECORDS SUMMARY | 2021-09-02 10:53 | XMS REPORT | Continuity of Care Document ---
:1985 Author Organization [facility] t Address [address] [place] [address] Care Team Providers Name Role Phone TEJAS MARTINEZ Attending Clinician Unavailable NURY Attending Clinician Unavailable NURY Admitting Clinician Unavailable Problems This patient has no known problems. Allergies, Adverse Reactions, Alerts This patient has no known allergies or adverse reactions. Medications This patient has no known medications. Procedures This patient has no known procedures. Encounters Start End Encounter Admission Attending Care Care Encounter Source Date/Time Date/Time Type Type Clinicians Facility Department ID 2021-02-02 2021-02-02 Emergency E DENIS MARTINEZ [facility] [id number] 01:24:00 05:46:00 2021-01-15 2021-01-15 Inpatient E JOSHUA [facility] [address] [facility] 04:09:00 15:41:[address] Results This patient has no known results.
[2021-09-02 12:38] LABS: Urine Blood Negative (Negative); Urine Glucose 2+ (Negative); Urine Protein Negative (Negative); Urine Specific Gravity 1.025 (1.005-1.030); Urine pH 6.5 (5.0-7.0)
--- NOTE | 2021-09-02 13:40 | RAD REPORT ---
EXAM DESCRIPTION: CT - Head Brain Wo Cont - 09/02/2021 1:19 pm CLINICAL HISTORY: Numbness COMPARISON: None TECHNIQUE: Computed axial tomography of the head was obtained. IV contrast was not requested. All CT scans are performed using dose optimization technique as appropriate and may include automated exposure control or mA/KV adjustment according to patient size. FINDINGS: An intracranial bleed is not seen . The ventricles are normal in caliber. No extra-axial fluid collection is noted. Fluid within the sinuses/ mastoids is not seen. IMPRESSION: No acute intracranial abnormality is seen. If patient's symptoms persist MRI of the bra in would be recommended.
--- NOTE | 2021-09-02 13:51 | ER ---
Nurse's Notes [facility] Name: Fer Mendoza Age: 36 yrs Sex: Male : 1985 Arrival Date: 09/02/2021 Time: 10:51 Bed 10 Private MD: Diagnosis: Sciatica, left side Presentation: 09/02 11:11 Chief complaint: Patient states: for the last 2 days I've had lower left back pain [facility] that's causing my left leg to go numb on and off. denies trauma or fall. Coronavirus screen: Vaccine status: Patient reports receiving the 2nd dose of the covid vaccine. Client denies travel out of the [place] in the last 14 days. Ebola Screen: Patient negative for fever greater than or equal to 101.5 degrees Fahrenheit, and additional compatible Ebola Virus Disease symptoms Patient denies exposure to infectious person. Patient denies travel to an Ebola-affected area in the 21 days before illness onset. No acute neurological deficit is noted. Pre-hospital glucose is not applicable to this patient. Initial Sepsis Screen: Does the patient meet any 2 criteria? No. Patient's initial sepsis screen is negative. Does the patient have a suspected source of infection? No. Patient's initial sepsis screen is negative. Risk Assessment: Do you want to hurt yourself or someone else? Patient reports no desire to harm self or others. Onset of symptoms was August 31, 2021. 11:11 Method Of Arrival: Ambulatory [facility] 11:11 Acuity: CHARLES 3 5 Triage Assessment: 11:13 The onset of the patients symptoms was more than six hours ago. General: Appears in no [facility] apparent distress. comfortable, well groomed, well developed, well nourished, Behavior is calm, cooperative, appropriate for age. Pain: Complains of pain in back. Neuro: No deficits noted. Reports. Historical: - Home Meds: 11:13 supposed to take DM and htn medications but does not [Active]; jh - PMHx: 11:13 Diabetes - IDDM; Hypertension; [facility] - Immunization history:: Adult Immunizations up to date. - Social history:: Smoking status: Reported history of juuling and/or vaping. Screenin:24 Abuse screen: Denies threats or abuse. Denies injuries from another. Nutritional [facility] screening: No deficits noted. Tuberculosis screening: No symptoms or risk factors identified. Fall Risk None identified. Vital Signs: 11:11 BP 160 / 91; Pulse 94; Resp 18; Temp 97.6; Pulse Ox 99% ; Weight 129.73 kg; Height 6 jh5 ft. 1 in. (185.42 cm); Pain 6/10; 11:11 Body Mass Index 37.73 (129.73 kg, 185.42 cm) [facility] ED Course: 10:51 Patient arrived in ED. am2 11:13 Triage completed. jh5 11:13 Arm band placed on right wrist. 5 11:34 Emily Michel FNP-C is PHCP. kb 11:34 Mohinder Casey MD is Attending Physician. kb 12:24 Laura Shine, RN is Primary Nurse. jh5 12:24 Patient has correct armband on for positive identification. jh5 12:24 No provider procedures requiring assistance completed. jh5 13:19 CT Head Brain wo Cont In Process Unspecified. EDMS Administered Medications: No medications were administered Outcome: 13:50 Discharge ordered by . kb 13:54 Patient left the ED. [facility] Signatures: Dispatcher [employer] EDMS Emily Michel FNP-C SHOE SALESPERSON-Kezia Casillas am2 Laura Shine, RN RN [facility]
--- NOTE | 2021-09-02 13:51 | EDPHYS ---
Physician Documentation [facility] Name: Fer Mendoza Age: 36 yrs Sex: Male : 1985 Arrival Date: 09/02/2021 Time: 10:51 Bed 10 Private MD: ED Physician Mohinder Casey HPI: 09/02 13:53 This 36 yrs old Male presents to ER via Ambulatory with complaints of Weakness kb - left side, Low Back Pain. 13:53 The patient presents with pain that is acute, with no known mechanism of injury. The kb symptoms are located in the left low back. The pain radiates to the left leg. The problem was sustained from unknown cause. Onset: The symptoms/episode began/occurred 3 day(s) ago. Modifying factors: The patient symptoms are alleviated by nothing, the patient symptoms are aggravated by any movement. Associated signs and symptoms: The patient has no apparent associated signs or symptoms. Severity of symptoms: At their worst the symptoms were moderate, in the emergency department the symptoms are unchanged. The patient has not experienced similar symptoms in the past. The patient has not recently seen a physician. Pt reports left low back/upper buttock pain that radiates down left leg for 3 days. States he has intermittent numbness to left side of body, no numbness now. Has full control of bowel and bladder. Historical: - Home Meds: 11:13 supposed to take DM and htn medications but does not [Active]; jh5 - PMHx: 11:13 Diabetes - IDDM; Hypertension; 5 - Immunization history:: Adult Immunizations up to date. - Social history:: Smoking status: Reported history of juuling and/or vaping. ROS: 13:52 Constitutional: Negative for fever, chills, and weight loss. kb 13:52 Back: Positive for pain at rest, pain with movement, radiated pain, of the left low back. 13:52 Neuro: Positive for numbness, of the left arm and left leg. 13:52 All other systems are negative. Exam: 13:52 Constitutional: This is a well developed, well nourished patient who is awake, alert, kb and in no acute distress. Head/Face: Normocephalic, atraumatic. ENT: Moist Mucous membranes Cardiovascular: Regular rate and rhythm with a normal S1 and S2. No gallops, murmurs, or rubs. No pulse deficits. Respiratory: Respirations even and unlabored. No increased work of breathing. Talking in full sentences Abdomen/GI: Soft, non-tender. No distention Skin: Warm, dry with normal turgor. Normal color. MS/ Extremity: Pulses equal, no cyanosis. Neurovascular intact. Full, normal range of motion. Neuro: Awake and alert, GCS 15, oriented to person, place, time, and situation. Moves all extremities. Normal gait. Psych: Awake, alert, with orientation to person, place and time. Behavior, mood, and affect are within normal limits. 13:52 Back: pain, that is moderate, of the left low back, ROM is normal, normal spinal alignment noted. Vital Signs: 11:11 BP 160 / 91; Pulse 94; Resp 18; Temp 97.6; Pulse Ox 99% ; Weight 129.73 kg; Height 6 jh5 ft. 1 in. (185.42 cm); Pain 6/10; 11:11 Body Mass Index 37.73 (129.73 kg, 185.42 cm) jh5 MDM: 12:21 Patient medically screened. kb 13:52 Data reviewed: vital signs, nurses notes. Data interpreted: Pulse oximetry: on room air kb is 99 %. Interpretation: normal. Counseling: I had a detailed discussion with the patient and/or guardian regarding: the historical points, exam findings, and any diagnostic results supporting the discharge/admit diagnosis, lab results, radiology results, the need for outpatient follow up, a family practitioner, to return to the emergency department if symptoms worsen or persist or if there are any questions or concerns that arise at home. 09/02 12:38 Order name: Urine Dipstick-Ancillary; Complete Time: 12:42 EDMS 09/02 12:38 Order name: Urine Dipstick-Ancillary EDMS 09/02 12:24 Order name: CT Head Brain wo Cont; Complete Time: 13:42 kb 09/02 12:24 Order name: Urine Dipstick-Ancillary (obtain specimen); Complete Time: 13:31 kb Administered Medications: No medications were administered Disposition: 15:00 Co-signature as Attending Physician, Mohinder Casey MD. rn Disposition Summary: 09/02/21 13:50 Discharge Ordered Location: Home kb Condition: Stable kb Diagnosis - Sciatica, left side kb Followup: kb - With: Emergency Department - When: As needed - Reason: Worsening of condition Followup: kb - With: Private Physician - When: 2 - 3 days - Reason: Recheck today's complaints, Continuance of care, Re-evaluation by your physician Discharge Instructions: - Discharge Summary Sheet kb - Sciatica, [id number] kb Forms: - Medication Reconciliation Form kb - Thank You Letter kb - Antibiotic Education kb - Prescription Opioid Use kb - Work release form jh5 Prescriptions: - Cyclobenzaprine 10 mg Oral Tablet - take 1 tablet by ORAL route every 8 hours As needed; 21 tablet; Refills: 0, kb Product Selection Permitted - Diclofenac Sodium 75 mg Oral tablet,delayed release (DR/EC) - take 1 tablet by ORAL route 2 times per day As needed; 30 tablet; Refills: 0, kb Product Selection Permitted Signatures: Dispatcher [employer] EDEmily Mars, ANDREINA WIGGINS-Mohinder Alvarez MD MD rn Rees, Jessica RN RN [facility]
[2021-09-02 14:00] VITALS: BP 160/91; TEMP 97.6; O2SAT 99
== END 2021-09-02 13:54 | disposition home or self-care (01) ==
LOC: ER 10:50
DX: M54.32 Sciatica, left side (principal); E11.9 Type 2 diabetes mellitus without complications; I10 Essential (primary) hypertension
CPT/HCPCS: 70450; 81003; 99282

== ENCOUNTER 2024-01-16 14:13 | Emergency (ER) | payer SELFPAY ==
--- OUTSIDE RECORDS SUMMARY | 2024-01-16 14:16 | XMS REPORT | Continuity of Care Document ---
Author Name Unknown Address [address] [facility] [address] [place] [address] [facility] thconnect Address [address] [facility] 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 Name Role Phone Kathrin Proctor Attending Clinician Unavailable DENIS MARTINEZ Attending Clinician Unavailab LANE Gandhi Attending Clinician Unavailable Physician, No Primary or Family Admitting Clinic nayeli Unavailable L[facility] [place] Admitting Clinician Unavailable Payers Payer Name Policy Type Policy Number Effective Date Expirati on Date Source Allergies, Adverse Reactions, Alerts Allergy Name Allergy Type Status Severity Reaction(s) Onset Date Inactive Date Treating Clinician Comments Source No Known Allergie s DA Active U 2021-07 00:00: 00 [facility] Start Date/Time End Date/Time Encounter Type Admission Type Attending Clinicians Care Facility Care Department Encounter ID Source 2022-04-29 22:50:00 2022-04-30 00:34:00 Emergency EM Kathrin Proctor [facility] [id number] [facility] 2021-02-02 01:24:00 2021-02-02 05:46:00 Emergency E DENIS MARTINEZ [facility] MED [address] [place] [address] 2021-01-15 04:09:00 2021-01-15 15:41:[address] [facility] [address] [facility] Results Test Description Test Time Test Comments Results Result Co mments Source Indication for culture: RiskForSepsis-no oth src Dysuria/FrequencyURINE SOURCE: CLEAN CATCH URINEBASIC METABOLIC [id number] 23:41:00* Test Item Value Reference Range Interpretation Comme nts SODIUM (test code = NA) 137 mmol/L 136-145 N POTASSIUM (test code = K) 3.8 mmol/L 3.5-5.1 N CHLORIDE (test code = CL) 101 mmol/L 98-107 N CARBON DIOXIDE (test code = CO2) 27 mmol/L 21-32 N GLUCOSE (test code = GLU) 312 mg/dL 70-100 H BLOOD UREA NITROGEN (test code = BUN) 10 mg/dL 7-18 N GLOMERULAR FILTRATION RATE (test code = GFR) > 60.00 See_Comment Reporting units: mL/min/1.73m\S\2 (Modified MDRD formula)REFERENCE RANGE: > or = 60 ml/min/1.73M2IF PATIENT IS -VINCENTIAN, MULTIPLY REPORTED RESULT BY1.21. [Automated message] The system which generated this result transmitted reference range: >=60. The reference range was not used to interpret this result as normal/abnormal. CREATININE (test code = CREAT) 0.94 mg/dl 0.70-1.30 N CALCIUM (test code = CA) 8.1 mg/dL 8.5-10.1 L CBC W/AUTO [id number] 23:34:00* Test Item Value Reference Range Interpretation Comme nts WHITE BLOOD CELL (test code = WBC) 7.2 X10(3) 4.5-11.0 N RED BLOOD CELL (test code = RBC) 5.14 X10(6) 4.3-5.9 N HEMOGLOBIN (test code = HGB) 14.8 g/dL 13.5-18.0 N HEMATOCRIT (test code = HCT) 44.3 % 42.0-52.0 N MEAN CELL VOLUME (test code = MCV) 86.2 fL 78-100 N MEAN CELL HGB (test code = MCH) 28.8 pg 26.0-34.0 N MEAN CELL HGB CONCETRATION (test code = MCHC) 33.4 g/dl 30.0-37.0 N RED CELL DISTRIBUTION WIDTH (test code = RDW) 12.1 % 11.5-14.5 N PLATELET COUNT (test code = PLT) 210 X10(3) 150-350 N MEAN PLATELET VOLUME (test c ode = MPV) 12.2 fl 8.7-11.4 H NEUTROPHIL % (test code = NT%) 68.4 % 36.0-66.0 H IMMATURE GRANULOCYTE % (test code = IG%) 0.1 % 0.0-2.0 N LYMPHOCYTE % (test code = LY%) 19.8 % 16-50 N MONOCYTE % (test code = MO%) 10.3 % 0.0-13.0 N EOSINOPHIL % (test code = EO%) 1.0 % 0.0-4.5 N BASOPHIL % (test code = BA%) 0.4 % 0.0-1.5 N NEUTROPHIL # (test code = NT#) 4.9 X10(3) 1.7-7.7 N IMMATURE GRANULOCYTE # (test code = IG#) 0.01 X10(3)uL 0.00-0.03 N LYMPHOCYTE # (test code = LY#) 1.4 X10(3) 1.0-4.8 N MONOCYTE # (test code = MO#) 0.7 X10(3) 0.0-0.89 N EOSINOPHIL # (test code = EO#) 0.1 X10(3) 0.0-0.6 N BASOPHIL # (test code = BA#) 0.0 X10(3) 0.0-0.2 N RBC MORPHOLOGY REQUIRED (ajay t code = RBCM) NO NORMAL Notes Date/Time Note Provider Source 2022-04-29 23:06:00 [id number]:06:00 [facility])EMERGENCY PROVIDER REPORTREPORT#:[id number] REPORT STATUS: SignedDATE:04/29/22 TIME: 2306 PATIENT: CECILIO PEREZ UNIT #: [id number]#: [id number] ROOM/BED:AGE: 37 SEX: M PCP PHYS: No Primary or Family PhysicianSERVICE AUTHOR: Kathrin Proctor MD * ALL edits or amendments must be made on the electronic/computer document * HPI-General Illness Free Text HPI NotesFree Text HPI [id number] uncircumcised male with history of obesity, insulin-dependent diabetes, medication noncompliance, no past surgical history, presents today with complaint of foreskin redness and swelling and skin lesions and pain. Patient endorses symptoms have been ongoing for 3 weeks, he has been thinking that it would go away on its own, has also tried cortisone topically as well as triple antibiotic, patient reports that a few days ago his foreskin was retracted and then was unable to be reduced back to neutral position and he had severe pain, eventually patient reports this to go back into neutral position and has been having progressively worsening severe pain and burning with urination and, no hematuria, no fever or or abdominal pain or change in p.o. intake or constipation or diarrhea, no penile discharge, patient endorsing he ishaving thick white to yellow of accumulating underneath the foreskin. Patient reports that he is supposed to be taking insulin however he often skips it due to his work schedule. Patient reports being sexually active with his only,no other partners. GeneralInitial Greet Date/Time 04/29/22 136 PresentationChief Complaint Urinary burning (foreskin pain swelling) Review of Systems ROS StatementsAll systems rev neg except as marked. Free Text ROS NotesFree Text ROS NotesConstitutional: Denies fevers or chillsEyes: Denies vision changes or dischargeENMT: Denies sore throat or throat swellingCV: Denies chest pain or leg swellingResp: Denies SOB, coughGI: Denies vomiting or diarrheaGU: Denies hematuria, + foreskin pain swelling redness cuts to edge, + penike glans swelling redness pain, thick white to yellow discharge under foreskin, + phimosis unable to retract foreskinMSK: Denies recent trauma or swellingSkin: Denies new rashes or lacerationsNeuro: Denies new numbness or tingling or weaknessEndocrine: Denies unexpected weight loss or polyuriaHeme: Denies bleeding disorders or lymphadenopathy Past Medical History - AdultStated Complaint TIGHTNESS FORESKINAllergiesCoded Allergies:No Known Allergies (04/29/22) Pt reports no significant: Past surgical historyPast Medical History:Reports: Diabetes mellitus. Pt reports no Fam Hx pert to chief complaint.Alcohol Use Denies EtOH useDrug Use Denies recreational drugsSmoking status for patients 13 years old or older: Never Smoker Physical Exam Vital SignsVital SignsFirst Documented: Result Date Time Pulse Ox 98 04/29 2257 B/P 154/82 04/297 B/P Mean 106 04/29 2257 O2 Delivery Room air 04/29 2257 Temp 36.2 04/29 2257 Pulse 78 04/29 2257 Resp 16 04/29 2257 Last Documented: Result Date Time Pulse Ox 98 04/297 B/P 154/82 04/29 2257 B/P Mean 106 04/29 2257 O2 Delivery Room air 04/29 2257 Temp 36.2 04/29 2257 Pulse 78 04/29 2257 Resp 16 04/29 2257 Review of Vital Signs Reviewed Free Text PE NotesFree Text PE NotesPatient agreed to appropriate student assistant, CARSON CARBAJAL RN, being present during the sensitive portion(s) of the evaluation and exam. General: Well appearing, NADSkin: Warm, dryHead: Normocephalic, atraumaticEyes: Non-icteric sclera, no dischargeEars: External ear wnl, no dischargeNose: Nares patent, atraumaticThroat: MMM, no stridorNeck: Supple, trachea midlineChest: Equal b/l rise, atraumaticHeart: S1S2 present, no murmurs/rubs/gallopsLungs: CTABL, no rales/rhonchi/wheezesAbdomen: Non-distended, no guarding, soft, nontenderGU: No testicular tenderness, no external lesions, normal testicular lie, cremasteric reflex intact, diffuse swelling and erythema of foreskin with small cuts to edge of foreskin, unable to retract, significant thick white and yellow discharge accumulated underlying foreskin, diffuse swelling and redness of the glansBack: No lesions, full ROMExtremities: No deformity, atraumaticNeuro: Awake, alert, oriented x 3Psych: Appropriate mood and affect, no active hallucinations Interpretation Diagnostics Lab Results InterpretationResultsLaboratory Tests 04/29/22 2322:[Embedded Image Not Available]Laboratory Tests: 04/29 04/29 2321 2322 Chemistry Sodium (136 - 145 mmol/L) 137 Potassium (3.5 - 5.1 mmol/L) 3.8 Chloride (98 - 107 mmol/L) 101 Carbon Dioxide (21 - 32 mmol/L) 27 BUN (7 - 18 mg/dL) 10 Creatinine (0.70 - 1.30 mg/dl) 0.94 Estimated GFR (MDRD) (>=60) > 60.00 Glucose (70 - 100 mg/dL) 312 H Calcium (8.5 - 10.1 mg/dL) 8.1 L Hematology WBC (4.5 - 11.0 X10(3)) 7.2 RBC (4.3 - 5.9 X10(6)) 5.14 Hgb (13.5 - 18.0 g/dL) 14.8 Hct (42.0 - 52.0 %) 44.3 MCV (78 - 100 fL) 86.2 MCH (26.0 - 34.0 pg) 28.8 MCHC (30.0 - 37.0 g/dl) 33.4 RDW (11.5 - 14.5 %) 12.1 Plt Count (150 - 350 X10(3)) 210 MPV (8.7 - 11.4 fl) 12.2 H Neut % (Auto) (36.0 - 66.0 %) 68.4 H Lymph % (Auto) (16 - 50 %) 19.8 Rosebud % (Auto) (0.0 - 13.0 %) 10.3 Eos % (Auto) (0.0 - 4.5 %) 1.0 Baso % (Auto) (0.0 - 1.5 %) 0.4 Immature Gran # (Auto) (0.00 - 0.03 X10(3)uL) 0.01 Absolute Neuts (auto) (1.7 - 7.7 X10(3)) 4.9 Absolute Lymphs (auto) (1.0 - 4.8 X10(3)) 1.4 Absolute Monos (auto) (0.0 - 0.89 X10(3)) 0.7 Absolute Eos (auto) (0.0 - 0.6 X10(3)) 0.1 Absolute Basos (auto) (0.0 - 0.2 X10(3)) 0.0 Immature Gran % (0.0 - 2.0 %) 0.1 RBC Morphology (NORMAL) NO Toxicology Ketones (NEGATIVE mg/dl) 15 H Urines Urine Color (YELLOW) YELLOW Urine Appearance (CLEAR) CLOUDY Urine pH (4.6 - 8.0) 6.0 Ur Specific [place] (1.001 - 1.035) 1.020 Urine Protein (NEGATIVE mg/dl) 30 H Urine Glucose (UA) (NORMAL mg/dl) 1000 H Urine Blood (NEGATIVE /UL) 150 H Urine Nitrite (NEGATIVE) NEGATIVE Urine Bilirubin (NEGATIVE mg/dl) NEGATIVE Urine Urobilinogen (NORMAL mg/dl) NORMAL Ur Leukocyte Esterase (NEGATIVE /UL) 500 H Urine RBC (0 - 5 #/hpf) 11-25 H Urine WBC (0 - 5 #/hpf) 51-100 H Ur Epithelial Cells (NEG,FEW /hpf) FEW Urine Bacteria (NEGATIVE /hpf) 2+ H Urine Comment CLN CATCH Microbiology: Date/Time Procedure - Status Source Growth 04/290 Urine Culture - ORD URINE Lab StatementLaboratory studies reviewed and considered in the medical decision-making. Re-Evaluation MDM Free Text MDM NotesFree Text MDM [id number] uncircumcised male with history of obesity, insulin-dependent diabetes, medication noncompliance, no past surgical history, presents today with complaint of foreskin redness and swelling and skin lesions and pain. DDX: BALANITIS VS BALANOPOSTHIIS VS UTI VS STD VS PHIMOSIS VS PARAPHIMOSIS Patient vitally stable, well appearing, NAD. Patient ordered for pain control. Exam consistent with fungal with likely secondary bacterial infection of region. Work-up significant for glucose 312 with normal anion gap and normal bicarb, UA showing positive leukocyte esterase infection with significant WBCs. On re-evaluation, patient with improvement. Patient advised about workup results and treatment plan, recommended to follow up with PCP, provided strict return precautions, endorses understanding and agreement. I have spoken with the patient and/or caregivers. I have explained the patient'scondition, diagnoses and treatment plan based on the information available to meat this time. I have answered the patient's and/or caregiver's questions and addressed any concerns. The patient and/or caregivers have as good an understanding of the patient's diagnosis, condition and treatment plan as can beexpected at this point. The vital signs have been stable. The patient's condition is stable and appropriate for discharge from the emergency department. The patient will pursue further outpatient evaluation with the primary care physician or other designated or consulting physician as outlined in the discharge instructions. The patient and/or caregivers are agreeable to this planof care and follow-up instructions have been explained in detail. The patient and/or caregivers have received these instructions in written format and have expressed an understanding of the discharge instructions. The patient and/or caregivers are aware that any significant change in condition or worsening of symptoms should prompt an immediate return to this or the closest emergency department or a call to 911. ED CourseMedication(s) OrderedMedication(s) Ordered:Anti-Infective Agents Sig/Monique Start time Last Medication Dose Route Stop Time Status Admin Ceftriaxone Sodium 1,000 MG X1ED STA 04/29 2353 DC Sodium Chloride 10 ML IV 04/29 2355 Central Nervous System Agents Sig/Monique Start time Last Medication Dose Route Stop Time Status Admin Ketorolac 15 MG X1ED STA 04/29 2324 DC 04/29 Tromethamine IV 04/29 2325 2328 Acetaminophen 1,000 MG X1ED STA 04/29 2306 DC 04/29 PO 04/29 2307 2328 Ketorolac 15 MG X1ED STA 04/29 2306 CAN Tromethamine IM 04/29 2307 Patient Discharge Departure Vital Signs/ConditionVital SignsFirst Documented: Result Date Time Pulse Ox 98 04/29 2257 B/P 154/82 04/29 2257 B/P Mean 106 04/29 2257 O2 Delivery Room air 04/29 2257 Temp 36.2 04/29 2257 Pulse 78 04/29 2257 Resp 16 04/29 2257 Last Documented: Result Date Time Pulse Ox 98 04/29 2257 B/P 154/82 04/29 2257 B/P Mean 106 04/29 2257 O2 Delivery Room air 04/29 2257 Temp 36.2 04/29 2257 Pulse 78 04/29 2257 Resp 16 04/29 2257 All vital signs available at the time of this entry have been reviewed. Clinical ImpressionClinical ImpressionPrimary Impression: Candidal balanoposthitisSecondary Impressions: Acute pain, Acute UTI, Hyperglycemia due to diabetes mellitus, Nonadherence to medication, Phimosis of penis Disposition DecisionDischarge )( Discharged to Home Yes )( Time 2358 )( Date 04/29/22 Discharge/Care Plan(Auto) PrescriptionsCurrent Visit ScriptsCLOTRIMAZOLE (CLOTRIMAZOLE 1% 15 GM) 1 APPLIC TOPICAL BID CLOTRIMAZOLE (CLOTRIMAZOLE 1% 15 GM) 1 APPLIC TOPICAL BID #15 GM apply to head of penis twice a day until resolved MUPIROCIN (BACTROBAN 2%) 1 APPLIC TOPICAL BID MUPIROCIN (BACTROBAN 2%) 1 APPLIC TOPICAL BID #22 GM Apply a small amount to foreskin and tip of penis until resolved CIPROFLOXACIN (CIPRO) 500 MG PO BID 14 Days #28 TABS take until completely finished Patient Instructions ED Balanitis, ED Balanoposthitis, ED Phimosis, Urinary Tract Infections in MenAdditional InstructionsPLEASE FOLLOW UP WITH YOUR PRIMARY CARE PROVIDER TO MONITOR YOUR RESPONSE TO THEPRESCRIPTION GIVEN TO YOU TODAY. CONTINUE WITH ACETAMINOPHEN (TYLENOL) 1,000 MG EVERY 6 HOURS AND IBUPROFEN (MOTRIN, ADVIL) 400 MG EVERY 6 HOURS FOR CONTROL OF YOUR PAIN. IF YOUR SYMPTOMS WORSEN WHILE TAKING THE ANTIBIOTIC PRESCRIBED PLEASE SEEK RE-EVALUATION.ReferralsProvider Referral: Jethro James MD Address: [address] [facility] [address] [place] [address] Provider Referral: Hima Kendrick MD Address: [address] [address] at 0001RPT #:[id number] OF REPORTEDEmergency department [id number]:06:[id number] ilable for patient [id number]:01:35 [facility]
[2024-01-16] MEDS ORDERED: ASPIRIN 81 MG CHEWABLE TABLET ONE (14:44)
[2024-01-16 14:52] LABS: Absolute Basophils 0.1 K/uL (0-0.5); Absolute Eosinophils 0.1 K/uL (0-0.5); Absolute Lymphocytes (CBC) 1.8 K/uL (0.7-4.9); Absolute Monocytes 0.5 K/uL (0.1-1.3); Absolute Neutrophil 4.2 K/uL (1.8-8.0); Basophils % 0.9 % (0-1.3); Eosinophils % 1.1 % (0-4.4); Hematocrit 47.2 % (39.6-49.0); Hemoglobin 16.2 g/dL (13.6-17.9); Lymphocytes % 26.6 % (15.3-44.8); MCH 29.6 pg (27.0-35.0); MCHC 34.3 g/dL (32.0-36.0); MCV 86.1 fL (80-100); MPV 10.4 fL (7.6-11.3); Monocytes % 7.9 % (3.3-12.3); Neutrophils % 63.5 % (41.7-73.7); Nucleated Red Blood Cells % 0.1 % (0-0); Platelets 265 thou/uL (152-406); RBC Red Blood Cell Count 5.48 M/uL (4.33-5.43); Red Cell Distribution Width 12.8 % (12.1-15.2)
[2024-01-16 14:53] LABS: PT Prothrombin Time 10.9 SECONDS (9.4-12.5); Protime INR 0.99
--- NOTE | 2024-01-16 15:07 | RAD REPORT ---
EXAM DESCRIPTION: RAD - Chest Single View - 01/16/2024 3:01 pm CLINICAL HISTORY: CHEST PAIN Chest pain. COMPARISON: Chest Single View dated 11/08/2023; Chest Single View dated 05/14/2021 FINDINGS: Portable technique limits examination quality. The lungs are grossly clear. The heart is normal in size. No displaced fractures. IMPRESSION: No acute intrathoracic process suspected.
[2024-01-16 15:21] LABS: Specific Gravity > 1.030 (1.005-1.030); Sqamous Epithelial <5 /HPF (None Seen); Urine Bacteria <20 /HPF (<20); Urine Bilirubin NEGATIVE (Negative); Urine Blood Negative (Negative); Urine Clarity Clear (Clear); Urine Color Colorless (Yellow); Urine Culture Reflex Order NOT NEEDED; Urine Glucose 4+ (Over) (Negative); Urine Ketones 1+ (Negative); Urine Micro Reflex YN NO BILL MICROSCOPIC; Urine Mucus Slight /HPF (None Seen); Urine Nitrite NEGATIVE (Negative); Urine Protein NEGATIVE (Negative); Urine RBC <5 /HPF (None Seen); Urine Urobilinogen Normal (Normal); Urine WBC <5 /HPF (<5)
[2024-01-16] MEDS ORDERED: KETOROLAC 30 MG/ML INJ ONE (15:26)
[2024-01-16 15:28] LABS: Barbiturates NEGATIVE (NEGATIVE); Benzodiazepines NEGATIVE (NEGATIVE); Cocaine NEGATIVE (NEGATIVE); METHAMPHETAM NEGATIVE (NEGATIVE); Methadone NEGATIVE (NEGATIVE); Opiates NEGATIVE (NEGATIVE); Phencyclidine NEGATIVE (NEGATIVE); THC Cannibis NEGATIVE (NEGATIVE)
[2024-01-16 16:07] LABS: ALT/SGPT 53 U/L (16-61); Albumin 3.5 g/dL (3.4-5.0); Albumin/Globulin Ratio 0.8 (1.1-1.8); Alkaline Phosphatase 171 U/L (45-117); Anion Gap 15.1 mEq/L (5.0-15.0); BUN Blood Urea Nitrogen 13 mg/dL (7-18); Bicarbonate 22 mEq/L (21-32); Bilirubin Total 0.3 mg/dL (0.2-1.0); Globulin 4.3 g/dL (2.3-3.5); Glomerular Filtration Rate 112 ml/min (=/>90); Glucose Level 340 mg/dL (74-106); Protein, Total 7.8 g/dL (6.4-8.2); Sodium Level 133 mEq/L (136-145); Troponin High Sensitivity 3.2 pg/mL (<58.9)
[2024-01-16 16:11] LABS: AST/SGOT 36 U/L (15-37); Bilirubin Direct < 0.2 mg/dL (0-0.2); Bilirubin Indirect, Calculated 0.1 mg/dL (0.2-0.8); Magnesium 2.1 mg/dL (1.6-2.4); NT PRO-BNP < 5 pg/mL (<125); Potassium 4.1 mEq/L (3.5-5.1)
--- NOTE | 2024-01-16 17:03 | RAD REPORT ---
EXAM DESCRIPTION: CT - Chest For Pe Angio - 01/16/2024 4:54 pm CLINICAL HISTORY: Chest pain. CHEST PAIN COMPARISON: Chest For Pe Angio dated 05/14/2021 TECHNIQUE: CT angiogram of the pulmonary arteries was performed with MIP. All CT scans are performed using dose optimization technique as appropriate and may include automated exposure control or mA/KV adjustment according to patient size. FINDINGS: There is poor opacification of the pulmonary arterial tree. Assessment for pulmonary embol ism is possible. No acute aortic finding demonstrated. The lungs are clear. The inferior lung javier are not included on this study. No significant pericardial or pleural fluid. No concerning bony finding. IMPRESSION: Evaluation for pulmonary embolism is not possible due to poor contrast opacification. No acute lung findings. The inferior lung javier are not included on study, limiting assessment.
[2024-01-16] MEDS ORDERED: INSULIN REGULAR (HUMAN) 100 UNIT/ML ONE (17:32)
[2024-01-16] MEDS ORDERED: NA CHLORIDE 0.9% 1,000 ML ONE (17:33)
--- NOTE | 2024-01-16 19:09 | EDPHYS ---
Physician Documentation [facility] Name: Fer Mendoza Age: 39 yrs Sex: Male : 1985 Arrival Date: 01/16/2024 Time: 14:13 Bed 5 Private MD: ED Physician Bryce Mart HPI: 01/15 14:40 This 39 yrs old Male presents to ER via Ambulatory with complaints of Chest cp Pain. 14:40 The patient or guardian reports chest pain that is located primarily in the substernal cp area. 14:40 Onset: yesterday. The pain radiates to chest. cp 14:40 Associated signs and symptoms: Pertinent positives: shortness of breath, Pertinent cp negatives: cough, diaphoresis, lower extremity pain, lower extremity swelling, vomiting. The chest pain is described as a pressure. Duration: The patient or guardian reports a single episode, that is still ongoing, and worsening. Modifying factors: the symptoms are aggravated by deep breath. Severity of pain: in the emergency department the pain is unchanged despite home interventions. 14:40 Patient reports PMHX significant for DM and HTN. Has not been taking prescribed cp medications. Historical: - Allergies: 14:28 No Known Allergies; nj1 - PMHx: 14:28 Diabetes - IDDM; Hypercholesterolemia; Hypertension; nj1 - Immunization history:: Client reports receiving the 2nd dose of the Covid vaccine. - Infectious Disease History:: Denies. - Social history:: Smoking status: Reported history of juuling and/or vaping. ROS: 14:45 Cardiovascular: Positive for chest pain, of the substernal, cp 14:45 Constitutional: Negative for body aches, chills, fever, poor PO intake, cp 14:45 Respiratory: Positive for shortness of breath, Negative for cough, wheezing, 14:45 Eyes: Negative for injury, pain, redness, and discharge, cp 14:45 ENT: Negative for drainage from ear(s), ear pain, sore throat, difficulty swallowing, difficulty handling secretions, 14:45 Abdomen/GI: Negative for abdominal pain, nausea, vomiting, and diarrhea, 14:45 Neuro: Negative for dizziness, headache, syncope, near syncope, weakness, 14:45 All other systems are negative, Exam: 14:50 Constitutional: The patient appears in no acute distress, alert, awake, cp non-diaphoretic, non-toxic, well developed, well nourished, overweight 14:50 Head/Face: Normocephalic, atraumatic. cp 14:50 Eyes: Periorbital structures: appear normal, Conjunctiva: normal, no exudate, no injection, Sclera: no appreciated abnormality, Lids and lashes: appear normal, bilaterally, 14:50 ENT: External ear(s): are unremarkable, Nose: is normal, Mouth: Lips: moist, Oral mucosa: pink and intact, moist, Posterior pharynx: is normal, airway is patent, no erythema, no exudate, 14:50 Neck: ROM/movement: is normal, is supple, without pain, no range of motions limitations, 14:50 Chest/axilla: Inspection: normal, Palpation: crepitus, is not appreciated, tenderness, is not appreciated, 14:50 Cardiovascular: Rate: tachycardic, Rhythm: regular, Edema: is not appreciated, JVD: is not appreciated, 14:50 Respiratory: the patient does not display signs of respiratory distress, Respirations: normal, no use of accessory muscles, no retractions, labored breathing, is not present, Breath sounds: are clear throughout, no decreased breath sounds, no stridor, no wheezing, 14:50 Abdomen/GI: Inspection: abdomen appears normal, Palpation: abdomen is soft and non-tender, in all quadrants, 14:50 Back: pain, is absent, ROM is normal, 14:50 Neuro: Orientation: to person, place \T\ time. Mentation: is normal, Motor: moves all fours, strength is normal, Sensation: is normal, 17:13 ECG was reviewed by the Attending Physician. cp 18:49 ECG was reviewed by the Attending Physician. cp Vital Signs: 14:19 BP 161 / 109; Pulse 102; Resp 18; Temp 98.6(O); Pulse Ox 95% on R/A; Weight 124.74 kg; nj1 Height 6 ft. 1 in. ; Pain 8/10; 16:05 BP 155 / 81; Pulse 70; Resp 17; Pulse Ox 99% on R/A; rs5 17:55 BP 150 / 88; Pulse 80; Resp 16; Pulse Ox 99% ; ko1 18:52 BP 149 / 71; Pulse 71; Resp 18; Pulse Ox 99% on R/A; rs5 14:19 Body Mass Index 36.28 (124.74 kg, 185.42 cm) nj1 14:19 Pain Scale: Adult nj1 MDM: 14:19 Patient medically screened. 19:10 The patient was given aspirin in the Emergency Department. 19:10 Differential diagnosis: abnormal EKG, acute myocardial infarction, pericarditis, cp pleurisy, pneumonia, pneumothorax, pulmonary embolus, stable angina, thoracic aortic disection, unstable angina. Data reviewed: vital signs, nurses notes, lab test result(s), EKG, radiologic studies, CT scan, plain films. Consideration of Admission/Observation Escalation of care including admission/observation considered. I considered the following discharge prescriptions or medication management in the emergency department Medications were administered in the Emergency Department. See MAR. Independent interpretation of the following test(s) in the Emergency Department EKG: See my EKG interpretation above. 19:12 ED course: VSS. Labs, EKG and radiology studies reviewed. Patient decided to leave the emergency department prior to results of second troponin. I was able to call patient to inform him that second troponin was negative and that the recommendation was to resume prescribed metformin and blood pressure medicine. Scripts will be made out for metformin 1000 mg to take twice daily and lisinopril 20 mg to take daily. Patient was also instructed to follow-up with his primary care doctor. 01/15 14:35 Order name: Basic Metabolic Panel; Complete Time: 16:12 01/15 16:13 Interpretation: Normal except: NA 133; ANION GAP 15.1; GLUC 340. 01/15 14:35 Order name: CBC with Diff; Complete Time: 16:03 01/15 16:03 Interpretation: Normal except: RBC 5.48. 01/15 14:35 Order name: LFT's; Complete Time: 16:12 01/15 16:13 Interpretation: Normal except: ALK 171; IBILI, CALC 0.1; GLOB 4.3; A/G 0.8. 01/15 14:35 Order name: Magnesium; Complete Time: 16:12 01/15 14:35 Order name: NT PRO-BNP; Complete Time: 16:12 01/15 14:35 Order name: PT-INR; Complete Time: 16:03 01/15 14:35 Order name: Troponin HS; Complete Time: 16:12 cp 01/15 16:13 Interpretation: Reviewed. 01/15 14:35 Order name: Urinalysis W/Microscopic; Complete Time: 16:03 cp 01/15 16:03 Interpretation: Normal except: Urine SG > 1.030; UGLUC 4+ (Over); UKET 1+. cp 01/15 14:35 Order name: UDS; Complete Time: 16:03 cp 01/15 14:47 Order name: D-Dimer; Complete Time: 16:03 EDMS 01/15 16:04 Interpretation: Reviewed. 01/15 17:34 Order name: Troponin High Sensitivity; Complete Time: 19:08 cp 01/15 18:47 Order name: Glucose, Ancillary Testing; Complete Time: 18:59 EDMS 01/15 18:59 Interpretation: Reviewed. 01/15 14:35 Order name: XRAY Chest (1 view); Complete Time: 16:03 cp 01/15 16:26 Order name: CT Chest For PE Angio; Complete Time: 17:08 cp 01/15 14:35 Order name: EKG; Complete Time: 14:35 cp 01/15 14:35 Order name: Cardiac monitoring; Complete Time: 15:25 cp 01/15 14:35 Order name: EKG - Nurse/Tech; Complete Time: 15:25 cp 01/15 14:35 Order name: IV Saline Lock; Complete Time: 15:25 cp 20 14:35 Order name: Labs collected and sent; Complete Time: 15:25 cp 01/15 14:35 Order name: O2 Per Protocol; Complete Time: 15:25 cp 01/15 14:35 Order name: O2 Sat Monitoring; Complete Time: 15:25 cp EC:13 Rate is 94 beats/min. Rhythm is regular. IA interval is normal. QRS interval is normal. cp QT interval is normal. T waves are Inverted in leads III, aVR. Interpreted by me. Reviewed by me. 18:49 Rate is 83 beats/min. Rhythm is regular. IA interval is normal. QRS interval is normal. cp QT interval is normal. T waves are Inverted in lead aVR. Interpreted by me. Reviewed by me. Administered Medications: 14:45 Drug: Aspirin PO Chewable Tablet 324 mg PO once; 81 mg tablets x 4 Route: PO; rs5 15:20 Follow up: Response: No adverse reaction rs5 15:30 Drug: Ketorolac IVP 15 mg IVP once Route: IVP; Site: right forearm; ko1 16:00 Follow up: Response: No adverse reaction; Pain is decreased rs5 16:45 Drug: NS 0.9% IV 1000 ml IV at 999 ml/hr Per protocol Route: IV; Rate: 999 ml/hr; Site: rs5 right antecubital; 17:00 Follow up: Response: No adverse reaction rs5 17:00 Drug: Insulin Regular Human Sub-Q 10 units Sub-Q once {Co-Signature: ko1 (Marlene Galvez rs5 RN).} Route: Sub-Q; Site: left upper arm; 17:20 Follow up: Response: No adverse reaction rs5 18:50 Not Given (Patient Refused): [id number] mg PO once; if systolic pressure greater than rs5 160 Disposition Summary: 01/16/24 19:10 Discharge Ordered Notes: Location: Home cp Problem: new cp Symptoms: have improved cp Condition: Stable cp Diagnosis - Chest pain, unspecified cp - Hypertensive heart disease without heart failure cp - Diabetes mellitus due to underlying condition with hyperglycemia cp Followup: cp - With: Private Physician - When: 1 - 2 days - Reason: Recheck today's complaints Discharge Instructions: - Discharge Summary Sheet cp - Nonspecific Chest Pain, Adult cp - Hyperglycemia cp - Daily Diabetes Mellitus Record cp - Blood Glucose Monitoring, Adult cp - Diabetes Mellitus and Nutrition, Adult cp - Aspirin and Your Heart cp Forms: - Medication Reconciliation Form cp - Antibiotic Education cp - Prescription Opioid Use cp - Patient Portal Instructions cp - Leadership Thank You Letter cp Prescriptions: - Lisinopril 20 mg Oral Tablet - take 1 tablet ORAL route once daily; 20 tablet; Refills: 0, Product Selection cp Permitted - Metformin 1,000 mg Oral Tablet - take 1 tablet ORAL route every 12 hours with morning and evening meals; 20 cp tablet; Refills: 0, Product Selection Permitted Signatures: Dispatcher [facility] Ute Ho RN RN aa5 El Lawson PA PA cp Marlene Galvez, RN RN ko1 Curtis Collins RN RN rs5 Yvette Linn RN RN nj1 Marlene Galvez RN ko1 Corrections: (The following items were deleted from the chart) 14:47 14:35 D-DIMER+COAG.LAB.BRZ ordered. EDMS EDMS 17:34 17:34 Troponin High Sensitivity+C.LAB.BRZ ordered. EDMS EDMS 19:08 after being seen by provider lorin pitts 19:08 (see nurse's notes) lorin pitts
--- NOTE | 2024-01-16 19:09 | ER ---
Nurse's Notes [facility] Name: Fer Mendoza Age: 39 yrs Sex: Male : 1985 Arrival Date: 01/16/2024 Time: 14:13 Bed 5 Private MD: Diagnosis: Chest pain, unspecified;Hypertensive heart disease without heart failure;Diabetes mellitus due to underlying condition with hyperglycemia Presentation: 01/15 14:19 Chief complaint: Patient states: Chest pain since yesterday, worse with deep breathing. nj1 Non complaint with home medications. 14:19 Coronavirus screen: Vaccine status: Patient reports receiving the 2nd dose of the covid nj1 vaccine. Ebola Screen: Patient denies travel to an Ebola-affected area in the 21 days before illness onset. Initial Sepsis Screen: Does the patient meet any 2 criteria? HR > 90 bpm. No. Patient's initial sepsis screen is negative. Does the patient have a suspected source of infection? No. Patient's initial sepsis screen is negative. Risk Assessment: Do you want to hurt yourself or someone else? Patient reports no desire to harm self or others. Onset of symptoms was January 15, 2024. 14:19 Method Of Arrival: Ambulatory [facility] 14:19 Acuity: CHARLES 3 nj1 Historical: - Allergies: 14:28 No Known Allergies; nj1 - PMHx: 14:28 Diabetes - IDDM; Hypercholesterolemia; Hypertension; nj1 - Immunization history:: Client reports receiving the 2nd dose of the Covid vaccine. - Infectious Disease History:: Denies. - Social history:: Smoking status: Reported history of juuling and/or vaping. Screenin:22 [facility] ED Fall Risk Assessment (Adult) History of falling in the last 3 months, ko1 including since admission No falls in past 3 months (0 pts) Confusion or Disorientation No (0 pts) Intoxicated or Sedated No (0 pts) Impaired Gait No (0 pts) Mobility Assist Device Used No (0 pt) Altered Elimination No (0 pt) Score/Fall Risk Level 0 - 2 = Low Risk Oriented to surroundings, Maintained a safe environment, Educated pt \T\ family on fall prevention, incl call for assistance when getting out of bed, Assessed \T\ reinforced patient's understanding of fall precautions, Provided non-skid footwear, Hourly rounding (assess needs \T\ fall precautionary measures) done. Abuse screen: Denies threats or abuse. Denies injuries from another. Nutritional screening: No deficits noted. Tuberculosis screening: No symptoms or risk factors identified. Assessment: 14:20 Pain: Complains of pain in chest Pain currently is 4 out of 10 on a pain scale. Quality rs5 of pain is described as aching, heavy. Cardiovascular: Patient's skin is warm and dry. Rhythm is regular. Respiratory: Respiratory effort is even, unlabored, Respiratory pattern is regular, symmetrical, Denies shortness of breath. 15:00 General: Appears in no apparent distress. Behavior is calm, cooperative, appropriate ko1 for age. Pain: Pain does not radiate. Pain began gradually. Neuro: No deficits noted. Cardiovascular: Reports chest pain. Respiratory: Reports pain with respiration. GI: No deficits noted. : No deficits noted. EENT: No deficits noted. Derm: No deficits noted. Musculoskeletal: No deficits noted. 16:11 Reassessment: No changes from previously documented assessment. rs5 17:15 Reassessment: Patient and/or family updated on plan of care and expected duration. Pain rs5 level reassessed. Patient is alert, oriented x 3, equal unlabored respirations, skin warm/dry/pink. 18:25 Reassessment: No changes from previously documented assessment. rs5 18:52 Reassessment: Patient and/or family updated on plan of care and expected duration. Pain rs5 level reassessed. Patient is alert, oriented x 3, equal unlabored respirations, skin warm/dry/pink. 19:05 Reassessment: Pt came out of his room asking how much longer for disposition, LIANE [email or web address] notified he is waiting on repeat troponin results. Contacted lab, spoke to Michael at 1901 and stated troponin result still has 5 more minutes to result, pt was notified, pt upset and stated he wants to leave now. . Vital Signs: 14:19 BP 161 / 109; Pulse 102; Resp 18; Temp 98.6(O); Pulse Ox 95% on R/A; Weight 124.74 kg; nj1 Height 6 ft. 1 in. ; Pain 8/10; 16:05 BP 155 / 81; Pulse 70; Resp 17; Pulse Ox 99% on R/A; rs5 17:55 BP 150 / 88; Pulse 80; Resp 16; Pulse Ox 99% ; ko1 18:52 BP 149 / 71; Pulse 71; Resp 18; Pulse Ox 99% on R/A; rs5 14:19 Body Mass Index 36.28 (124.74 kg, 185.42 cm) nj1 14:19 Pain Scale: Adult co1 ED Course: 14:15 Patient arrived in ED. mr 14:16 El Lawson PA is PHCP. cp 14:16 Bryce Mart MD is Attending Physician. cp 14:28 Triage completed. nj1 14:28 Arm band placed on. nj1 14:36 Curtis Collins, RN is Primary Nurse. rs5 15:03 XRAY Chest (1 view) In Process Unspecified. EDMS 16:56 CT Chest For PE Angio In Process Unspecified. EDMS 17:22 Patient has correct armband on for positive identification. Bed in low position. Call ko1 light in reach. Side rails up X 1. Provided Education on: call light, meds. Client placed on continuous cardiac and pulse oximetry monitoring. NIBP monitoring applied. 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 Door closed. Noise minimized. Lights dimmed. Warm blanket given. Pillow given. 17:22 No provider procedures requiring assistance completed. O2 via RA. ko1 19:02 IV discontinued, intact, bleeding controlled, No redness/swelling at site. Pressure aa5 dressing applied, Pt d/c'd his own IV while I was explaining about repeat troponin wait time. 19:09 Primary Nurse role handed off by Curtis Collins, RN cp Administered Medications: 14:45 Drug: Aspirin PO Chewable Tablet 324 mg PO once; 81 mg tablets x 4 Route: PO; rs5 15:20 Follow up: Response: No adverse reaction rs5 15:30 Drug: Ketorolac IVP 15 mg IVP once Route: IVP; Site: right forearm; ko1 16:00 Follow up: Response: No adverse reaction; Pain is decreased rs5 16:45 Drug: NS 0.9% IV 1000 ml IV at 999 ml/hr Per protocol Route: IV; Rate: 999 ml/hr; Site: rs5 right antecubital; 17:00 Follow up: Response: No adverse reaction rs5 17:00 Drug: Insulin Regular Human Sub-Q 10 units Sub-Q once {Co-Signature: koMarlene Cade rs5 RN).} Route: Sub-Q; Site: left upper arm; 17:20 Follow up: Response: No adverse reaction rs5 18:50 Not Given (Patient Refused): [id number] mg PO once; if systolic pressure greater than rs5 160 Medication: 17:21 VIS not applicable for this client. ko1 Outcome: 19:05 Eloped from patient exam room, after seeing physician aa5 19:08 Patient left the ED. aa5 19:10 Discharge ordered by . cp Signatures: Dispatcher [employer] JoseSherrie, Reg Reg mr PickardUte, RN RN aa5 El Lawson PA PA cp Marlene Galvez, RN RN ko1 Curtis Collins RN RN rs5 Yvette Lnin RN RN nj1 Marlene Galvez RN ko1 Corrections: (The following items were deleted from the chart) 18:53 18:52 BP 149 / 71; Pulse 17bpm; Resp 18bpm; Pulse Ox 99% RA; rs5 rs5 19:08 19:03 Eloped from patient exam room, after seeing physician aaRosa aa5 19:13 19:13 Patient left the ED. aa5 lorin
[2024-01-16 19:23] VITALS: TEMP 98.6; O2SAT 99
[2024-01-16 19:37] VITALS: BP 149/71
--- NOTE | 2024-01-20 13:11 | EKG ---
Test Date: 2024-01-16 Test Time: 17:11:10 Beauty Sales Advisor: ROSSY MEASUREMENT RESULTS: Intervals: Rate: 94 FL: 152 QRSD: 88 QT: 360 QTc: 450 [place]: P: 39 FL: 152 QRS: 68 T: 13 INTERPRETIVE STATEMENTS: Normal sinus rhythm Normal ECG Compared to ECG 11/08/2023 21:22:18 No significant changes Electronically Signed On 01-20-24 13:04:20 CDT by Bruce Greene
== END 2024-01-16 19:13 | disposition home or self-care (01) ==
LOC: ER 14:13
DX: I11.9 Hypertensive heart disease without heart failure (principal); E08.65 Diabetes mellitus due to underlying condition with hyperglycemia
CPT/HCPCS: 36415; 71045; 71275; 80048; 80076; 80307; 81001; 82947; 83735; 83880; 84484; 85025; 85379; 85610; 93005; 96372; 96374; 99285; J7030; Q9967